=== PATIENT | female | born 1990 | race Two or more races ===

== ENCOUNTER 2025-03-17 09:00 | Inpatient (IN) | payer OTHER ==
[2025-03-17] MEDS: ELECTROLYTE-148 SOLN 500 ML IV ONE (10:00)
[2025-03-17 10:03] LABS: ABSOLUTE IMMATURE GRANULOCYTES 0.09 x10^3/uL (0.0-0.031); BASOPHILS # 0.01 x10^3/uL (0.01-0.08); EOSINOPHIL % 0.6 % (0.7-5.8); EOSINOPHILS # 0.05 x10^3/uL (0.04-0.36); MCHC 33.2 g/dl (32.2-35.5); MEAN CELL VOLUME 88.5 fl (79.4-94.8); MEAN PLT VOLUME 9.8 fl (9.4-12.3); MONOCYTE # 0.68 x10^3/uL (0.24-0.86); MONOCYTE % 8.5 % (4.7-12.5); RDW 14.2 % (12.1-16.8)
[2025-03-17 10:11] LABS: INR 0.94 (0.83-1.09); PROTHROMBIN TIME (PATIENT) 10.2 SEC (9.7-13.0)
[2025-03-17 10:14] LABS: ACTIVATED PTT 26.8 SECONDS (25.2-36.5)
[2025-03-17 10:26] LABS: CO2 22.0 mmol/L (21-32); GLUCOSE,RANDOM 80.0 mg/dL (74-106)
[2025-03-17 10:29] LABS: CREATININE 0.4 mg/dL (0.55-1.3)
[2025-03-17] MEDS ORDERED: IBUPROFEN 600 MG TABLET (FP) PO PRN (11:18)
[2025-03-17] MEDS ORDERED: ONDANSETRON 4 MG/2 ML VIAL IVPUSH PRN (11:18)
[2025-03-17] MEDS ORDERED: ACETAMINOPHEN 1000 MG/100 ML BAG IVPB PRN (11:19)
[2025-03-17] MEDS ORDERED: morphine SULFATE/PF 1 MG/2 ML (2cc Syringe - QUVA) ONE (11:28)
[2025-03-17] MEDS ORDERED: FENTANYL CITRATE/PF 50 MCG/ML VIAL ONE (11:29)
[2025-03-17 12:06] VITALS: BMI 41.0
[2025-03-17] MEDS: CITRIC ACID/SODIUM CITRATE 30 ML UNIT-DOSE CUP PO ONE (14:32)
[2025-03-17] MEDS ORDERED: OXYTOCIN 20 UNITS in 0.9% NS 20 UNIT/1,000 ML INFUS.BAG IV ONE (15:19)
[2025-03-17] MEDS ORDERED: DEXAMETHASONE SOD PHOSPHATE 4 MG/1 ML VIAL ONE (15:26)
[2025-03-17] MEDS ORDERED: KETOROLAC TROMETHAMINE 30 MG/1 ML VIAL ONE (15:26)
[2025-03-17] MEDS ORDERED: OXYTOCIN 10 UNITS/ML VIAL ONE (15:45)
[2025-03-17] MEDS: OXYTOCIN 20 UNITS in 0.9% NS 20 UNIT/1,000 ML INFUS.BAG IV SCH (17:45)
[2025-03-17] MEDS: IBUPROFEN 800 MG/8 ML IJ IVPB PRN (22:52)
[2025-03-18 07:30] LABS: ABSOLUTE IMMATURE GRANULOCYTES 0.09 x10^3/uL (0.0-0.031); BASOPHILS # 0.02 x10^3/uL (0.01-0.08); EOSINOPHIL % 0.2 % (0.7-5.8); EOSINOPHILS # 0.03 x10^3/uL (0.04-0.36); MCHC 33.1 g/dl (32.2-35.5); MEAN CELL VOLUME 89.0 fl (79.4-94.8); MEAN PLT VOLUME 10.0 fl (9.4-12.3); MONOCYTE # 0.95 x10^3/uL (0.24-0.86); MONOCYTE % 7.0 % (4.7-12.5); RDW 14.0 % (12.1-16.8)
[2025-03-18] MEDS: IBUPROFEN 600 MG TABLET (FP) PO PRN (11:06)
[2025-03-18] MEDS ORDERED: BISACODYL 10 MG SUPP.RECT RC PRN (12:33)
[2025-03-18] MEDS: ACETAMINOPHEN 325 MG TABLET (FP) PO PRN (18:12)
[2025-03-18 21:22] VITALS: RESP 18
[2025-03-19] MEDS: SIMETHICONE 80 MG TAB.CHEW (FP) PO PRN (02:54)
[2025-03-19] MEDS ORDERED: FERROUS SO4 325 MG TABLET (FP) PO ONE (06:48)
[2025-03-19] MEDS: DOCUSATE SODIUM 100 MG CAPSULE (FP) PO PRN (09:54)
[2025-03-19] MEDS: FERROUS SO4 325 MG TABLET (FP) PO ONE (09:54)
[2025-03-19 22:01] VITALS: PULSE 85
[2025-03-20 07:26] LABS: ABSOLUTE IMMATURE GRANULOCYTES 0.10 x10^3/uL (0.0-0.031); BASOPHILS # 0.02 x10^3/uL (0.01-0.08); EOSINOPHIL % 2.0 % (0.7-5.8); EOSINOPHILS # 0.17 x10^3/uL (0.04-0.36); MCHC 32.3 g/dl (32.2-35.5); MEAN CELL VOLUME 90.1 fl (79.4-94.8); MEAN PLT VOLUME 9.9 fl (9.4-12.3); MONOCYTE # 0.63 x10^3/uL (0.24-0.86); MONOCYTE % 7.4 % (4.7-12.5); RDW 14.3 % (12.1-16.8)
[2025-03-20 09:54] VITALS: BP 103/78; TEMP 98.1
== END 2025-03-20 13:50 | disposition home or self-care (01) | DRG 540 ==
LOC: JLDR 09:00 → J3W 20:23
PROVIDERS: ADMIT Student in an Organized Health Care Education/Training Program; ATTEND Student in an Organized Health Care Education/Training Program
PROC: 10D00Z1 Extraction of Products of Conception, Low, Open Approach (ICD-10-PCS; principal; 2025-03-17)
DX: O99.02 Anemia complicating childbirth (principal); D64.9 Anemia, unspecified; Z3A.41 41 weeks gestation of pregnancy; Z37.0 Single live birth
CPT/HCPCS: 36415; 80048; 85025; 85610; 85730; 86780; 86850; 86900; 86901; 88307-TC

== ENCOUNTER 2025-05-06 06:41 | Emergency (ER) | payer OTHER ==
[2025-05-06 06:52] VITALS: BMI 34.4
[2025-05-06] MEDS ORDERED: FAMOTIDINE 20 MG/50 ML IVPB 20 MG/50 ML MG IVPB ONE (07:45)
[2025-05-06] MEDS ORDERED: ACETAMINOPHEN INJECTION 100 ML ONE (07:45)
[2025-05-06] MEDS ORDERED: MAG HYDROX/AL HYDROX/SIMETH 30 ML UNIT-DOSE CUP ONE (07:45)
[2025-05-06] MEDS: FAMOTIDINE 20 MG/50 ML IVPB 20 MG/50 ML MG IVPB ONE (08:15)
[2025-05-06] MEDS: MAG HYDROX/AL HYDROX/SIMETH 30 ML UNIT-DOSE CUP PO ONE (08:15)
[2025-05-06] MEDS: ACETAMINOPHEN 1000 MG/100 ML BAG IVPB ONE (08:15)
[2025-05-06 08:26] LABS: ABSOLUTE IMMATURE GRANULOCYTES 0.03 x10^3/uL (0.0-0.031); BASOPHILS # 0.01 x10^3/uL (0.01-0.08); EOSINOPHIL % 0.3 % (0.7-5.8); EOSINOPHILS # 0.02 x10^3/uL (0.04-0.36); MCHC 31.7 g/dl (32.2-35.5); MEAN CELL VOLUME 88.2 fl (79.4-94.8); MEAN PLT VOLUME 9.3 fl (9.4-12.3); MONOCYTE # 0.37 x10^3/uL (0.24-0.86); MONOCYTE % 5.6 % (4.7-12.5); RDW 12.8 % (12.1-16.8)
[2025-05-06] MEDS ORDERED: SODIUM CHLORIDE 0.9% 1000 ML INFUS.BAG IV ONE (09:30)
[2025-05-06 10:25] LABS: GLUCOSE,RANDOM 96.0 mg/dL (74-106)
[2025-05-06 10:26] LABS: TOT PROT 7.0 g/dl (6.4-8.2)
[2025-05-06 10:27] LABS: CO2 23.0 mmol/L (21-32)
[2025-05-06 10:28] LABS: ALK PHOS 91.0 U/L (40-150)
[2025-05-06 10:31] LABS: CREATININE 0.59 mg/dL (0.55-1.3); SGOT/AST 61.0 U/L (5-34); SGPT/ALT 26.0 U/L (0-55)
[2025-05-06 10:35] LABS: HCV DIAGNOSTIC IN-HOUSE W/RFLX NON-REACTIVE (NONREACTIVE)
[2025-05-06 10:56] LABS: EPI CELLS >36 /uL (0-25.1); HYALINE CASTS 0 /uL (0-3.1); URINE APPEARANCE TURBID; URINE BACTERIA 1831 /uL (0-1359); URINE BILIRUBIN NEGATIVE (NEGATIVE); URINE COLOR YELLOW; URINE GLUCOSE (UA) NEGATIVE (NEGATIVE); URINE KETONE NEGATIVE (NEGATIVE); URINE LEUK ESTERASE 2+ (NEGATIVE); URINE NITRITE NEGATIVE (NEGATIVE); URINE PROTEIN NEGATIVE (NEGATIVE); URINE UROBILINOGEN 0.2 mg/dL (0.2-1.0); URINE WBC 317 /uL (0-25.8)
[2025-05-06 11:43] LABS: HIV INTERPRETATION NEGATIVE (NEGATIVE)
[2025-05-06 11:52] LABS: URINE RBC 18.9 /uL (0-23.9)
[2025-05-06] MEDS ORDERED: CEFTRIAXONE 1 GM/50 ML BAG ONE (12:44)
[2025-05-06 14:59] VITALS: BP 119/79; PULSE 63; RESP 16; TEMP 97.5
== END 2025-05-06 13:12 | disposition home or self-care (01) ==
LOC: JER 06:41
PROC: 3E033GC Introduction of Other Therapeutic Substance into Peripheral Vein, Percutaneous Approach (ICD-10-PCS; principal; 2025-05-06)
PROC: 3E03329 Introduction of Other Anti-infective into Peripheral Vein, Percutaneous Approach (ICD-10-PCS; 2025-05-06)
PROC: 3E033NZ Introduction of Analgesics, Hypnotics, Sedatives into Peripheral Vein, Percutaneous Approach (ICD-10-PCS; 2025-05-06)
DX: R10.11 Right upper quadrant pain (principal); R10.13 Epigastric pain; R11.0 Nausea; M25.511 Pain in right shoulder; M54.9 Dorsalgia, unspecified
CPT/HCPCS: 36415; 71045-TC-FY; 76705-TC; 80053; 81003; 83690; 84484; 84703; 85025; 86803; 86850; 86900; 86901; 87086; 87389; 93005; 93010; 96365; 96375; 99285-25